=== PATIENT | female | born 1960 | race Caucasian/White ===

== ENCOUNTER 2019-02-10 14:14 | Outpatient (CLI) | payer BC ==
--- NOTE | 2019-02-10 17:03 | RAD ---
CERVICAL SPINE FOUR VIEWS: 02/10/19 HISTORY: Spondylosis without myelopathy or radiculopathy. COMPARISON: None. FINDINGS: Limited evaluation of the open mouth odontoid view is unremarkable. There is multilevel degenerative disc space height loss from C3-C7. Mild uncinate process hypertrophy. No significant listhesis. Normal motion of the cervical spine in flexion. There is mild retrolisthesi s of C4 over C5, 2 mm, with extension. IMPRESSION: Mild translation with extension at C4-C5. Moderate degenerative changes. POS: [facility]
== END 2019-02-10 14:15 | disposition home or self-care (01) ==
LOC: RAD 14:14
PROVIDERS: ATTEND Specialist
DX: M47.812 Spondylosis without myelopathy or radiculopathy, cervical region (principal)
CPT/HCPCS: 72050